=== PATIENT | female | born 1990 | race Caucasian/White ===

== ENCOUNTER 2018-02-20 17:01 | Outpatient (CLI) | payer SELFPAY ==
[~2018-02-20] VITALS: Ht 149.9 cm; Wt 65.9 kg
[2018-02-20 17:28] VITALS: BP 122/79
[2018-02-20 18:05] LABS: AMPHETAMINE SCREEN, URINE Negative (Negative); BARBITURATE SCREEN, URINE Negative (Negative); BENZODIAZEPINE SCREEN, URINE Negative (Negative); CANNABINOID SCREEN, URINE Negative (Negative); COCAINE SCREEN, URINE Negative (Negative); METHADONE SCREEN, URINE Negative (Negative); OPIATE SCREEN, URINE Negative (Negative)
[2018-02-20 18:20] LABS: CULTURE INDICATED? YES; MICROSCOPIC INDICATED
== END 2018-02-20 20:40 | disposition home or self-care (01) ==
LOC: LDOP 17:01
PROVIDERS: ATTEND Obstetrics & Gynecology
DX: O09.33 Supervision of pregnancy with insufficient antenatal care, third trimester (principal); O62.4 Hypertonic, incoordinate, and prolonged uterine contractions; Z3A.36 36 weeks gestation of pregnancy
CPT/HCPCS: 59025; 76805; 76819; 80307; 81001; 87081; 87086; 99201; G0463

== ENCOUNTER 2021-01-05 09:34 | Emergency (ER) | payer SELFPAY ==
[~2021-01-05] VITALS: Ht 149.9 cm; Wt 64.0 kg
--- NOTE | 2021-01-05 09:53 | NUR ---
PT HAS CO CHEST PAIN AFTER EATING AND DRINKING. STARTED LAST NIGHT AFTER DINNER. MID STERNUM. NO N/V
[2021-01-05] MEDS ORDERED: MAALOX/HYOSCYAMINE/LIDOCAINE 45 ML BTL ONE (10:21)
[2021-01-05 10:27] LABS: MEAN CORPUSCULAR HGB CONC 34.1 g/dL (32.4-35.8); MEAN PLATELET VOLUME 7.9 fL (7.4-10.4); PLATELET COUNT 85 x10^3/uL (130-400); RED BLOOD COUNT 3.78 x10^6/uL (3.82-5.3); RED CELL DISTRIBUTION WIDTH 12.9 % (9.6-15.2)
[2021-01-05] MEDS ORDERED: MAALOX/HYOSCYAMINE/LIDOCAINE 45 ML BTL PO ONE (10:30)
[2021-01-05 10:33] LABS: ALANINE AMINOTRANSFERASE 86 U/L (12-78); ALBUMIN 3.5 g/dL (3.4-5.0); ANION GAP 10 mmol/L (5-15); CALCIUM 8.7 mg/dL (8.5-10.1); CHLORIDE 106 mmol/L (98-107); CREATININE 0.68 mg/dL (0.55-1.02)
[2021-01-05 10:37] LABS: ALKALINE PHOSPHATASE 64 U/L (45-117); BILIRUBIN,TOTAL 0.5 mg/dL (0.2-1.0); TOTAL PROTEIN 8.5 g/dL (6.4-8.2); TROPONIN I < 0.015 ng/mL (0.000-0.045)
[2021-01-05 10:50] LABS: BAND#(MANUAL) 0.05 x10^3/uL; BANDS%(MANUAL) 2 % (0-7); EOS#(MANUAL) 0.03 x10^3/uL (0.0-0.4); EOS% (MANUAL) 1 % (1-7); LYMPH#(MANUAL) 0.52 x10^3/uL (1-3.4); LYMPHS% (MANUAL) 20 % (22-44); MONOS#(MANUAL) 0.23 x10^3/uL (0.3-2.7); MONOS% (MANUAL) 9 % (2-9); SEG#(MANUAL) 1.77 x10^3/uL (1.8-6.8); SEGS% (MANUAL) 68 % (42-75)
[2021-01-05 10:53] LABS: <PLATELET ESTIMATE> DECREASED; <PLT MORPHOLOGY> NORMAL PLT MORPH; <RBC MORPHOLOGY> NORMAL
--- NOTE | 2021-01-05 11:54 | NUR ---
PT DENIES N/V. FEELS BETTER AFTER GI COCKTAIL. POC FOR DC. VSS
--- NOTE | 2021-01-05 12:31 | NUR ---
PT IN ESOPHAGRAM
--- NOTE | 2021-01-05 14:17 | NUR ---
THIS FLOAT RN AT BEDSIDE TO DC PT FOR PRIMARY RNGordo. PT VERBALIZED UNDERSTANDING TO DC INSTRUCTIONS. AMBULATORY TO CHECKOUT C STEADY GAIT. PT HYPERTENSIVE AT TIME OF DC. ED MD GARSIA MADE AWARE, NO FURTHER ORDERS AT THIS TIME. PT OFFERED DETOX REFERRALS BY THIS RN, PT DECLINED MULTIPLE ATTEMPTS TO PROVIDE DETOX INFORMATION STATING, "I'M NOT READY TO DO THAT YET. I'M JUST GOING TO GO HOME AND HAVE A DRINK SO I CAN FEEL BETTER."
[2021-01-05 14:19] VITALS: BP 162/114
== END 2021-01-05 14:22 | disposition home or self-care (01) ==
LOC: ED 10:54
DX: K85.20 Alcohol induced acute pancreatitis without necrosis or infection (principal); R07.89 Other chest pain; R06.02 Shortness of breath; R94.31 Abnormal electrocardiogram [ECG] [EKG]
CPT/HCPCS: 36415; 71045; 74220; 80053; 83690; 84484; 85025; 93005; 99285